=== PATIENT | male | born 1990 | race Caucasian/White ===

== ENCOUNTER 2019-12-11 07:19 | Inpatient (IN) | payer SELFPAY ==
[~2019-12-11] VITALS: Ht 165.1 cm; Wt 77.2 kg
[2019-12-11] VITALS (10 sets, daily range): BP systolic 93–116; BP diastolic 30–89
[2019-12-11] MEDS ORDERED: KETOROLAC 30 MG/ML VIAL IVP ONE (07:30)
[2019-12-11] MEDS ORDERED: LORazepam INJ 2 MG/ML (ATIVAN) VIAL IVP ONE (07:30)
[2019-12-11] MEDS ORDERED: NS IV 1000 ML 1,000 ML IV SCH (07:30)
[2019-12-11 07:52] LABS: BASOPHILS # (AUTO) 0.1 10^3/uL (0.0-0.1); BASOPHILS % (AUTO) 1 % (0-10); EOSINOPHILS # (AUTO) 0.4 10^3/uL (0.0-0.3); EOSINOPHILS % (AUTO) 4 % (0-10); HEMATOCRIT 45 % (40-54); HEMOGLOBIN 15.4 G/DL (13.3-17.7); LYMPHOCYTES # (AUTO) 2.3 X 10^3 (1.0-4.0); LYMPHOCYTES % (AUTO) 25 % (12-44); MEAN CORPUSCULAR HEMOGLOBIN 32 PG (25-34); MEAN CORPUSCULAR HGB CONC 34 G/DL (32-36); MEAN CORPUSCULAR VOLUME 93 FL (80-99); MEAN PLATELET VOLUME 8.4 FL (7.4-10.4); MONOCYTES # (AUTO) 0.8 X 10^3 (0.0-1.0); MONOCYTES % (AUTO) 8 % (0-12); NEUTROPHILS # (AUTO) 5.7 X 10^3 (1.8-7.8); NEUTROPHILS % (AUTO) 62 % (42-75); PLATELET COUNT 322 10^3/uL (130-400); WHITE BLOOD COUNT 9.2 10^3/uL (4.3-11.0)
[2019-12-11] MEDS ORDERED: ZIPRASIDONE INJECTION 10 MG in WATER (STERILE) FOR INJECTION 1.2 ML IM ONE (08:00)
[2019-12-11] MEDS ORDERED: ZIPRASIDONE 20 MG INJ (GEODON) VIAL IM ONE ×2 (08:04→08:15)
[2019-12-11 08:05] LABS: SMEAR SCAN COMMENT YES
[2019-12-11] MEDS ORDERED: WATER (STERILE) FOR INJECTION 10 ML ONE (08:05)
--- NOTE | 2019-12-11 08:05 | NUR ---
TO ROOM PATIENT STANDING ON SIDE OF BED
--- NOTE | 2019-12-11 08:05 | NUR ---
CON'T TO YELL AND SCREAM IN ROOM DR JELLY MANZANO.
[2019-12-11 08:19] LABS: ALBUMIN 4.7 GM/DL (3.2-4.5); CHLORIDE 103 MMOL/L (98-107); POTASSIUM 3.7 MMOL/L (3.6-5.0); SODIUM 138 MMOL/L (135-145)
[2019-12-11 08:21] LABS: CALCIUM 9.3 MG/DL (8.5-10.1)
[2019-12-11 08:22] LABS: GLUCOSE 83 MG/DL (70-105); TOTAL PROTEIN 7.7 GM/DL (6.4-8.2)
[2019-12-11 08:23] LABS: CARBON DIOXIDE 24 MMOL/L (21-32)
[2019-12-11 08:24] LABS: BILIRUBIN,TOTAL 0.2 MG/DL (0.1-1.0)
--- NOTE | 2019-12-11 08:24 | NUR ---
Julienne jackson in ED - 12/11/19 at 0826 by PMCCLURE CON'T TO PEDRO AFTER MEDS GIVEN. DR DONY MANZANO
[2019-12-11 08:25] LABS: ALKALINE PHOSPHATASE 62 U/L (40-136)
[2019-12-11 08:26] LABS: CREATININE SERUM 0.97 MG/DL (0.60-1.30); GFR ESTIMATED > 60
[2019-12-11 08:27] LABS: BUN/CREATININE RATIO 12
[2019-12-11 08:28] LABS: ALANINE AMINOTRANSFERASE 15 U/L (0-55)
--- NOTE | 2019-12-11 08:30 | NUR ---
PATIENT APPEARS TO BE SLEEPING SA02 89 -90 % PLACED ON 02
--- NOTE | 2019-12-11 08:32 | NUR ---
SA02 UP TO 98% PER 2L OF NC
--- NOTE | 2019-12-11 09:14 | NUR ---
CONT'T TO SLEEP
--- NOTE | 2019-12-11 09:23 | NUR ---
Julienne jackson in [facility] - 12/11/19 at 0925 by PMCCLURE MOTHER CALLED TO CHECK DR CALLAHAN.
--- NOTE | 2019-12-11 09:25 | NUR ---
MOTHER CALLED TO CHECK ON PATIENT DR HEATH TALKING WITH PATIENT.
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
--- NOTE | 2019-12-11 10:25 | NUR ---
TO CT PER CART
--- NOTE | 2019-12-11 11:00 | NUR ---
TO ROOM SLEEPING PATIENT HOLDING HIS ARM BACK NOT TO ALLOW B/P TO BE TAKEN.
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
[2019-12-11 12:28] LABS: AMPHETAMINE SCREEN, URINE POSITIVE (NEGATIVE); BARBITURATE SCREEN URINE NEGATIVE (NEGATIVE); BENZODIAZEPINES SCREEN URINE NEGATIVE (NEGATIVE); CANNABINOID SCREEN, URINE POSITIVE (NEGATIVE); COCAINE SCREEN URINE NEGATIVE (NEGATIVE); METHADONE STAT NEGATIVE (NEGATIVE); METHAMPHETAMINE SCREEN URINE S NEGATIVE (NEGATIVE); OPIATE SCREEN URINE NEGATIVE (NEGATIVE); OXYCODONE STAT NEGATIVE (NEGATIVE); PROPOXYPHENE STAT NEGATIVE (NEGATIVE); TRICYCLIC ANTIDEPRESSANTS SCRE NEGATIVE (NEGATIVE)
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
--- NOTE | 2019-12-11 13:32 | NUR ---
DR GROVESATED HIS MOTHER
[2019-12-11] MEDS ORDERED: 1/2 NS IV SOLUTION 1,000 ML IV PRN (13:46)
[2019-12-11] MEDS ORDERED: D5 1/2 NS 1000 ML IV SOLUTION 1,000 ML IV PRN (14:00)
[2019-12-11] MEDS ORDERED: ACETAMINOPHEN 325 MG TABLET PO PRN (14:00)
[2019-12-11] MEDS ORDERED: polyethylene glycoL POWDER 17 GM (MIRALAX) PACK PO PRN (14:00)
[2019-12-11] MEDS ORDERED: LORazepam INJ 2 MG/ML (ATIVAN) VIAL IV PRN (14:00)
[2019-12-11] MEDS ORDERED: LORazepam 1 MG (ATIVAN) TAB PO PRN (14:00)
[2019-12-11] MEDS ORDERED: ANTACID SUSP 30 ML UDC (MYLANTA) PO PRN (14:00)
[2019-12-11] MEDS ORDERED: MELATONIN 3 MG TABLET PO PRN (14:00)
[2019-12-11] MEDS ORDERED: LORazepam INJ 2 MG/ML (ATIVAN) VIAL IM/IV PRN (14:00)
[2019-12-11] MEDS ORDERED: ONDANSETRON 4 MG/2 ML (SDV) Z0FRAN IV PRN (14:00)
[2019-12-11] MEDS: NS IV 1000 ML 1,000 ML IV SCH ×3 (15:09→23:18)
[2019-12-11] MEDS ORDERED: MAGNESIUM OXIDE (MAG-OX)400 MG TAB PO SCH (21:00)
[2019-12-11] MEDS ORDERED: ENOXAPARIN 40 MG/0.4 ML (LOVENOX) SYR SC SCH (21:00)
[2019-12-12] VITALS: BP 100/60
[2019-12-12 01:00] VITALS: BP 96/62
[2019-12-12 02:00] VITALS: BP 109/65
[2019-12-12 03:00] VITALS: BP 105/69
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
[2019-12-12] MEDS ORDERED: MULTIVIT W/MINERALS TAB (THERAGRAN M) PO SCH (07:00)
[2019-12-12] MEDS ORDERED: THIAMINE 100 MG (VITAMIN B-1) TAB PO SCH (07:00)
== END 2019-12-12 03:31 | disposition left against medical advice (07) | DRG 894 ==
LOC: ER 07:20 → ICU 13:45
PROVIDERS: ADMIT Family Medicine; ATTEND Family Medicine
DX: F19.129 Other psychoactive substance abuse with intoxication, unspecified (principal); S02.609A Fracture of mandible, unspecified, initial encounter for closed fracture; F10.129 Alcohol abuse with intoxication, unspecified; F15.90 Other stimulant use, unspecified, uncomplicated; F29 Unspecified psychosis not due to a substance or known physiological condition
CPT/HCPCS: 36415; 70450; 70486; 80053; 80306; 80320; 85025; 86141; 87081; G0378

== ENCOUNTER 2020-04-01 19:57 | Emergency (ER) | payer SELFPAY ==
[~2020-04-01] VITALS: Ht 165 cm; Wt 77.0 kg
[2020-04-01 20:06] VITALS: BP 136/86
[2020-04-01] MEDS ORDERED: BSS 15 ML IR ONE (20:30)
[2020-04-01] MEDS ORDERED: FLUORESCEIN (FLUOR-I-STRIPS) 1 MG STRP OU ONE (20:30)
[2020-04-01] MEDS ORDERED: TETRACAINE 0.5% OPHTH SOLN 4 ML BTL (SINGLE DOSE ONLY) OU ONE (20:30)
--- NOTE | 2020-04-01 20:43 | ED EENT ---
History of Present Illness General Chief Complaint: Eye Problems Stated Complaint: R EYE DISCOLORATION/ITCHING Nursing Triage Note: C/O RIGHT EYE "LUMP" FOR 2-4 DAYS CAUSING ITCHING/PRESSURE. Source: patient Exam Limitations: no limitations History of Present Illness Date Seen by Provider: Apr 01, 2020 Time Seen by Provider: 20:20 Initial Comments This 29-year-old young man presents to the emergency room with complaints of fe eling an itching and pressure in the right eye. He feels like there is a lump on the sclera inferior to the iris. He denies any vision change. He states the discomfort is more of an itching than a pain. He describes a yellow discoloration to the eye that is not appreciated by this examiner. He then later states the symptoms are on the left eye. He then later states the sympto ms are present in both eyes. Symptoms have been present for a few days. Allergies and Home Medications Allergies Coded Allergies: No Known Drug Allergies (Unverified , 12/11/19) Patient Home Medication List Home Medication List Reviewed: Yes Review of Systems Review of Systems Constitutional: no symptoms reported Eyes: See HPI Ears: No Symptoms Reported Nose: no symptoms reported Mouth: no symptoms reported Throat: no symptoms reported Respiratory: no symptoms reported Cardiovascular: no symptoms reported Skin: no symptoms reported Neurological: Other (Patient is a poor historian and relatively on cooperative with exam.) Past Uxwnvec-Cnxfcw-Kqhgcu Hx Past Med/Social Hx: Reviewed Nursing Past Med/Soc Hx Patient Social History Alcohol Use: Rarely Uses Number of Drinks Today: DD Alcohol Beverage of Choice: Rum Recreational Drug Use: Yes Drug of Choice: CANNIBUS Smoking Status: Current Everyday Smoker Type Used: Cigarettes 2nd Hand Smoke Exposure: Yes Recent Foreign Travel: No Contact w/Someone Who Travel: No Recent Infectious Disease Expo: No Recent Hopitalizations: No Immunizations Up To Date Tetanus Booster (TDap): Unknown Seasonal Allergies Seasonal Allergies: No Past Medical History Surgeries: No Respiratory: No Cardiac: No Neurological: No Genitourinary: No Gastrointestinal: No Musculoskeletal: No Endocrine: No HEENT: No Cancer: No Psychosocial: Yes ADD/ADHD Integumentary: No Blood Disorders: No Family Medical History Unable to obtained due to sedation Physical Exam Vital Signs Vital Signs - First Documented 04/01/20 20:06 Temp 37.0 Pulse 107 B/P (MAP) 136/86 (103) Pulse Ox 18 O2 Delivery Room Air Height, Weight, BMI Height: '" Weight: lbs. oz. kg; 28.00 BMI Method: General Appearance: WD/WN, no apparent distress Eyes: bilateral eye normal inspection, bilateral eye PERRL, bilateral eye EOMI, bilateral eye other (Bilateral fluorescein exam is unremarkable) Ears: bilateral ear auricle normal Nose: normal inspection Neurologic/Psychiatric: hospital coder II-XII nml as tested, no motor/sensory deficits, alert, other (Patient seems paranoid and is resistant to exam.) Skin: normal color, warm/dry Progress/Results/Core Measures Results/Orders My Orders Orders - KIMBERLEY MCMANUS MD Tetracaine 0.5% Ophth Tennille Sdv (Tetracai (04/01/20 20:30) Fluorescein Strips ([id number]) (04/01/20 20:30) Balanced Salt Irrigation Soln (Bss Irrig (04/01/20 20:30) Medications Given in ED Current Medications Medications Dose Ordered Sig/Noemi Route Start Time Stop Time Status Last Admin Dose Admin Balanced Salt Solution 15 ml ONCE ONCE IR 04/01/20 20:30 04/01/20 20:31 DC 04/01/20 20:28 15 ML Fluorescein Sodium 1 mg ONCE ONCE OU 04/01/20 20:30 04/01/20 20:31 DC 04/01/20 20:28 1 MG Tetracaine HCl 4 ml ONCE ONCE OU 04/01/20 20:30 04/01/20 20:31 DC 04/01/20 20:28 4 ML Vital Signs/I&O 04/01/20 20:06 Temp 37.0 Pulse 107 B/P (MAP) 136/86 (103) Pulse Ox 18 O2 Delivery Room Air Blood Pressure Mean: 103 Progress Progress Note : Progress Note Patient seemed paranoid and was resistant to exam. He did not want me to get close enough to examine his eyes or touch him. It took some convincing for him to allow me to get close enough to examine his eyes. Gross examination was unremarkable. I applied tetracaine and fluorescein. Examination under black light revealed no foreign bodies or abrasions. Patient felt it was awkward to have a male examine him so close to his face. He would withdraw during exam. At one point he suggested that the "blonde girl" perform the exam because it was awkward for me to do it. I informed him that the physicians are required to do the exam, not the technicians. Departure Impression Primary Impression: Itch of eye Disposition: HOME, SELF-CARE Condition: Stable Departure-Patient Inst. Decision time for Depature: 20:41 Referrals: NO,LOCAL PHYSICIAN (PCP/Family) Primary Care Physician Patient Instructions: Conjunctivitis (Noninfectious Pinkeye) Add. Discharge Instructions: No evidence of infection, foreign body, or injury was seen on your eye exam today. Your eye irritation and itching is likely due to allergies. I suggest you use an [id number] allergy medicine such as Claritin (loratadine), Zyrtec (cetirizine), or Anne (fexofenadine). Contact your primary care provider or return to care if you are having worsening symptoms. All discharge instructions reviewed with patient and/or family. Voiced understanding. KIMBERLEY MCMANUS MD Apr 01, 2020 20:43
== END 2020-04-01 20:44 | disposition home or self-care (01) ==
LOC: EDUNIT# 19:57 → ER 20:04
DX: H57.89 Other specified disorders of eye and adnexa (principal); F17.210 Nicotine dependence, cigarettes, uncomplicated
CPT/HCPCS: 99282